=== PATIENT | female | born 1995 | race Caucasian/White ===

== ENCOUNTER 2016-03-16 11:26 | Emergency (ER) | payer MEDICAID ==
--- NOTE | 2016-03-16 11:49 | ER Document Report ---
ED Medical Screen (RME) - General Stated Complaint: VAGINAL DISCHARGE Mode of Arrival: Ambulatory Information source: Patient Notes: Patient presents today with complaints of abdominal cramping vaginal discharge that started today. Patient is 7 weeks she one P0. Denies fever vomiting diarrhea denies trauma. TRAVEL OUTSIDE OF THE [place] IN LAST 30 DAYS: No - Related Data Allergies/Adverse Reactions: No Known Allergies Allergy (Verified 01/29/12 07:51) Past Medical History Past Surgical History: Reports: Hx Orthopedic Surgery - R knee - Immunizations Immunizations up to date: Yes Hx Diphtheria, Pertussis, Tetanus Vaccination: Yes - 03/04/2007 Physical Exam - Vital signs Vitals: Temp Pulse Resp BP Pulse Ox 98.2 F 97 17 124/81 100 03/16/16 11:38 03/16/16 11:38 03/16/16 11:38 03/16/16 11:38 03/16/16 11:38 Course - Vital Signs Vital signs: Temp Pulse Resp BP Pulse Ox 98.2 F 97 17 124/81 100 03/16/16 11:38 03/16/16 11:38 03/16/16 11:38 03/16/16 11:38 03/16/16 11:38
[2016-03-16 12:13] LABS: ABSOLUTE EOSINOPHILS # (AUTO) 0.1 10^3/uL (0.0-0.6); ABSOLUTE LYMPHOCYTES (AUTO) 1.9 10^3/uL (0.5-4.7); ABSOLUTE MONOCYTES (AUTO) 0.7 10^3/uL (0.1-1.4); ABSOLUTE NEUT (AUTO) 8.1 10^3/uL (1.7-8.2); BASOPHILS % (AUTO) 0.4 % (0-2); EOSINOPHILS % (AUTO) 0.6 % (0-6); HEMATOCRIT 41.9 % (36.0-47.0); HEMOGLOBIN 13.6 g/dL (12.0-15.5); HGB HCT DIFFERENCE -1.1; LYMPHOCYTES % (AUTO) 17.5 % (13-45); MEAN CORPUSCULAR HEMOGLOBIN 31.2 pg (27.0-33.4); MEAN CORPUSCULAR HGB CONC 32.5 g/dL (32.0-36.0); MEAN CORPUSCULAR VOLUME 96 fl (80-97); MONOCYTES % (AUTO) 6.9 % (3-13); RED BLOOD COUNT 4.37 10^6/uL (3.72-5.28); RED CELL DISTRIBUTION WIDTH 12.3 % (11.5-14.0); SEGMENTED NEUTROPHILS % (AUTO) 74.6 % (42-78); WHITE BLOOD COUNT 10.8 10^3/uL (4.0-10.5)
[2016-03-16 12:30] LABS: ALANINE AMINOTRANSFERASE 21 U/L (9-52); ALBUMIN 4.5 g/dL (3.5-5.0); ALKALINE PHOSPHATASE 57 U/L (38-126); ANION GAP 14 (5-19); ASPARTATE AMINO TRANSFERASE 20 U/L (14-36); BILIRUBIN,TOTAL 0.4 mg/dL (0.2-1.3); BLOOD UREA NITROGEN 11 mg/dL (7-20); CALCIUM 9.7 mg/dL (8.4-10.2); CARBON DIOXIDE 23 mmol/L (22-30); CHLORIDE 103 mmol/L (98-107); CREATININE RESULT 0.66 mg/dL (0.52-1.25); GLUCOSE 86 mg/dL (75-110); POTASSIUM 4.1 mmol/L (3.6-5.0); SODIUM 139.5 mmol/L (137-145); TOTAL PROTEIN 7.6 g/dL (6.3-8.2)
[2016-03-16] MEDS ORDERED: ACETAMINOPHEN 325 MG TABLET PO ONE (13:32)
--- NOTE | 2016-03-16 13:33 | ER Document Report ---
Addendum entered and electronically signed by KRISTINE WINTER PA 03/16/16 20:47: Course - Re-evaluation Re-evalutation: 03/16/16 20:46 Patient called the emergency department, states she tried to take the pills but cannot take pills without vomiting. Will change to oral suspension. Because the oral suspension of the same dose of cephalexin would be a very large amount , prescription was switched to cefdinir 300 mg twice a day 5 days. This was called into [facility]. - Vital Signs Vital signs: Temp Pulse Resp BP Pulse Ox 98.4 F 85 16 109/74 98 03/16/16 17:06 03/16/16 17:06 03/16/16 17:06 03/16/16 17:06 03/16/16 17:06 - Laboratory Result Diagrams: 03/16/16 11:50 03/16/16 11:50 Laboratory results interpreted by me: 03/16/16 03/16/16 03/16/16 11:50 11:50 11:50 WBC 10.8 H Beta HCG, Quant 41562.00 H Ur Leukocyte Esterase TRACE H Original Note: ED GI/ - General Chief Complaint: Abdominal Cramping Stated Complaint: VAGINAL DISCHARGE Mode of Arrival: Ambulatory Information source: Patient Notes: Patient states she is currently about 7 weeks . Patient reports lower pelvic cramping and vaginal discharge that started today. Patient states discharge has been light brown. Patient reports lower pelvic cramping off and on for the past 2 weeks is currently resolved. Patient denies any urinary symptoms or concerns about sexually transmitted infection. Patient denies any fever, vomiting or diarrhea. TRAVEL OUTSIDE OF THE [place] IN LAST 30 DAYS: No - HPI Patient complains to provider of: Pelvic pain, Onset: Other - 2 weeks off and on Timing/Duration: Waxing and waning Quality of pain: No pain Pain Level: Denies Context: Location: Pelvis Vaginal bleeding (Compared to normal period): None Menstrual period history: Sexual history: Active Associated symptoms: Nausea, Vaginal discharge. denies: Dysuria, Fever, Urinary hesitancy, Urinary frequency, Urinary retention, Urinary urgency Exacerbated by: Denies Relieved by: Denies Similar symptoms previously: Yes Recently seen / treated by doctor: No - Related Data Allergies/Adverse Reactions: No Known Allergies Allergy (Verified 03/16/16 11:49) Past Medical History - General Information source: Patient Last Menstrual Period: 7 weeks - Social History Smoking Status: Never Smoker Chew tobacco use (# tins/day): No Frequency of alcohol use: None Drug Abuse: None Occupation: consulted services Lives with: Family Family History: None Patient has suicidal ideation: No Patient has homicidal ideation: No - Medical History Medical History: Negative Renal/ Medical History: Denies: Hx Peritoneal Dialysis Past Surgical History: Reports: Hx Orthopedic Surgery - R knee - Immunizations Immunizations up to date: Yes Hx Diphtheria, Pertussis, Tetanus Vaccination: Yes - 03/04/2007 Review of Systems - Review of Systems Constitutional: No symptoms reported. denies: Fever, Recent illness EENT: No symptoms reported Cardiovascular: No symptoms reported Respiratory: No symptoms reported. denies: Cough, Short of breath Gastrointestinal: Abdominal pain - Lower pelvic cramping off and on 2 weeks, currently resolved. denies: Vomiting Genitourinary: No symptoms reported. denies: Dysuria, Flank pain Female Genitourinary: , Vaginal discharge, Vaginal bleeding - Possibly, patient reports brown discharge Musculoskeletal: No symptoms reported. denies: Back pain Skin: No symptoms reported Hematologic/Lymphatic: No symptoms reported Neurological/Psychological: No symptoms reported Physical Exam - Vital signs Vitals: Temp Pulse Resp BP Pulse Ox 98.2 F 97 17 124/81 100 03/16/16 11:38 03/16/16 11:38 03/16/16 11:38 03/16/16 11:38 03/16/16 11:38 - General General appearance: Appears well, Alert In distress: None Notes: PHYSICAL EXAMINATION: GENERAL: Well-appearing and in no acute distress. HEAD: Atraumatic, normocephalic. EYES: sclera anicteric, conjunctiva are normal. ENT: nares patent. Moist mucous membranes. NECK: Normal range of motion, supple without lymphadenopathy LUNGS: CTAB and equal. No wheezes rales or rhonchi. HEART: Regular rate and rhythm without murmurs ABDOMEN: Soft, nontender, normal bowel sounds, no guarding. EXTREMITIES: Normal range of motion, no pitting edema. No cyanosis. BACK: No midline tenderness, no step-off or deformity. No CVA tenderness NEUROLOGICAL: Cranial nerves grossly intact. Normal speech. Normal gait. PSYCH: Normal mood, normal affect. SKIN: Warm, Dry, normal turgor, no rashes or lesions noted Course - Re-evaluation Re-evalutation: 03/16/16 16:21 Offered patient pelvic examination, patient declined stating she does not have any concerns about possible infection and declines pelvic examination this time. Patient states she has an appointment with the health department that she will keep for follow-up. Discussed worsening signs or symptoms that patient should return immediately for. Patient verbalized understanding and agrees with plan of care. 03/16/16 18:27 - Vital Signs Vital signs: Temp Pulse Resp BP Pulse Ox 98.4 F 85 16 109/74 98 03/16/16 17:06 03/16/16 17:06 03/16/16 17:06 03/16/16 17:06 03/16/16 17:06 - Laboratory Result Diagrams: 03/16/16 11:50 03/16/16 11:50 Laboratory results interpreted by me: 03/16/16 03/16/16 03/16/16 11:50 11:50 11:50 WBC 10.8 H Beta HCG, Quant 54955.00 H Ur Leukocyte Esterase TRACE H 03/16/16 16:22 Labs- Entire Visit 03/16/16 03/16/16 03/16/16 11:50 11:50 11:50 WBC 10.8 H RBC 4.37 Hgb 13.6 Hct 41.9 MCV 96 MCH 31.2 MCHC 32.5 RDW 12.3 Plt Count 297 Seg Neutrophils % 74.6 Lymphocytes % 17.5 Monocytes % 6.9 Eosinophils % 0.6 Basophils % 0.4 Absolute Neutrophils 8.1 Absolute Lymphocytes 1.9 Absolute Monocytes 0.7 Absolute Eosinophils 0.1 Absolute Basophils 0.0 Sodium 139.5 Potassium 4.1 Chloride 103 Carbon Dioxide 23 Anion Gap 14 BUN 11 Creatinine 0.66 Est GFR ( Amer) > 60 Est GFR (Non-Af Amer) > 60 Glucose 86 Calcium 9.7 Total Bilirubin 0.4 Direct Bilirubin 0.0 AST 20 ALT 21 Alkaline Phosphatase 57 Total Protein 7.6 Albumin 4.5 Beta HCG, Quant 41356.00 H Total Beta HCG POSITIVE Urine Color Urine Appearance Urine pH Ur Specific [place] Urine Protein Urine Glucose (UA) Urine Ketones Urine Blood Urine Nitrite Urine Bilirubin Urine Urobilinogen Ur Leukocyte Esterase Urine WBC (Auto) Urine RBC (Auto) Urine Bacteria (Auto) Squamous Epi Cells Auto Urine Mucus (Auto) Urine Ascorbic Acid Blood Type O POSITIVE Rhogam Indicated RHOGAM NOT INDICATED 03/16/16 11:50 WBC RBC Hgb Hct MCV MCH MCHC RDW Plt Count Seg Neutrophils % Lymphocytes % Monocytes % Eosinophils % Basophils % Absolute Neutrophils Absolute Lymphocytes Absolute Monocytes Absolute Eosinophils Absolute Basophils Sodium Potassium Chloride Carbon Dioxide Anion Gap BUN Creatinine Est GFR ( Amer) Est GFR (Non-Af Amer) Glucose Calcium Total Bilirubin Direct Bilirubin AST ALT Alkaline Phosphatase Total Protein Albumin Beta HCG, Quant Total Beta HCG Urine Color YELLOW Urine Appearance CLEAR Urine pH 6.0 Ur Specific [place] 1.012 Urine Protein NEGATIVE Urine Glucose (UA) NEGATIVE Urine Ketones NEGATIVE Urine Blood NEGATIVE Urine Nitrite NEGATIVE Urine Bilirubin NEGATIVE Urine Urobilinogen NEGATIVE Ur Leukocyte Esterase TRACE H Urine WBC (Auto) 2 Urine RBC (Auto) 1 Urine Bacteria (Auto) TRACE Squamous Epi Cells Auto 1 Urine Mucus (Auto) RARE Urine Ascorbic Acid NEGATIVE Blood Type Rhogam Indicated 03/16/16 18:27 - Diagnostic Test Radiology reviewed: Reports reviewed Discharge - Discharge Clinical Impression: Pelvic cramping Subchorionic bleed Qualifiers: Fetus number: single or unspecified fetus Trimester: first trimester Qualified Code(s): O41.8X10 - Other specified disorders of amniotic fluid and membranes, first trimester, not applicable or unspecified UTI (urinary tract infection) Qualifiers: Urinary tract infection type: site unspecified Hematuria presence: without hematuria Qualified Code(s): N39.0 - Urinary tract infection, site not specified Condition: Stable Disposition: HOME, SELF-CARE Instructions: Cephalexin ([facility]), Urinary Tract Infection ([facility]), Bleeding During Early ([facility]) Additional Instructions: Return immediately for any new or worsening symptoms Followup with your primary care provider, call tomorrow to make a followup appointment Follow up with the health department for a recheck, call Saturday for an appointment time Pelvic rest until cramping symptoms have resolved. Prescriptions: Cephalexin Monohydrate [Keflex 500 mg Capsule] 500 mg PO Q6H 5 Days Forms: Parent Work Note, Return to Work Referrals: HEALTH DEPT,[facility] [NO LOCAL MD] - 03/19/16
[2016-03-16 14:08] LABS: APPEARANCE,URINE CLEAR; BILIRUBIN,URINE NEGATIVE (NEGATIVE); GLUCOSE, URINE NEGATIVE (NEGATIVE); KETONES,URINE NEGATIVE (NEGATIVE); LEUKOCYTE ESTERASE,URINE TRACE (NEGATIVE); NITRITE,URINE NEGATIVE (NEGATIVE); PROTEIN,URINE NEGATIVE (NEGATIVE); URINE SPECIFIC GRAVITY 1.012; UROBILINOGEN,URINE NEGATIVE mg/dL (<2.0)
[2016-03-16] MEDS ORDERED: CEPHALEXIN 500 MG CAPSULE PO ONE (16:22)
[2016-03-16 17:14] VITALS: BP 109/74
== END 2016-03-16 17:16 | disposition home or self-care (01) ==
LOC: ER 11:26
DX: O23.41 Unspecified infection of urinary tract in pregnancy, first trimester (principal); O20.8 Other hemorrhage in early pregnancy; O26.891 Other specified pregnancy related conditions, first trimester; R10.2 Pelvic and perineal pain; Z3A.01 Less than 8 weeks gestation of pregnancy
CPT/HCPCS: 99284; 86900; 86901; 36415; 87086; 84702; 85025; 80053; 81001; 76817; J3490

== ENCOUNTER 2016-06-30 17:53 | Emergency (ER) | payer MEDICAID, OTHER ==
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
[2016-06-30 23:05] VITALS: BP 118/81
== END 2016-06-30 23:00 | disposition home or self-care (01) ==
LOC: ER 17:53
DX: O36.8120 Decreased fetal movements, second trimester, not applicable or unspecified (principal); Z3A.22 22 weeks gestation of pregnancy; V87.7XXA Person injured in collision between other specified motor vehicles (traffic), initial encounter
CPT/HCPCS: 76805; 93976; 99284

== ENCOUNTER 2016-10-18 09:37 | Inpatient (IN) | payer MEDICAID ==
--- NOTE | 2016-10-18 10:50 | Non Stress Test Report ---
Non Stress Test Datetime Report Generated by CPN: 10/18/2016 10:50 DEMOGRAPHIC EGA NST: 38.0 INDICATION Indication for Study (NST) Other: [facility]H w/u MONITORING Monitor Explained: Monitor Explained; Test Explained; Patient Verbalized Understanding Time on Monitor: 10/18/2016 09:53 Time off Monitor: 10/18/2016 10:29 NST Duration: 36 NST INTERVENTIONS NST Interventions: PO Hydration; Reposition Patient Physician Notified NST: Dr. Davidson BABY A: [id number] BABY A Movement : Present Contraction Frequency : Irr FHR Baseline : 130 Accelerations : 15X15 Decelerations : None Variability : Moderate 6-25bpm NST Review: Meets Criteria for Reactive NST NST Review and Verified By : Ivy Banks RNC NST Results: Reactive NST REPORT Report Trigger: Send Report
[2016-10-18 10:52] LABS: APPEARANCE,URINE SLIGHTLY-CLOUDY; BILIRUBIN,URINE NEGATIVE (NEGATIVE); GLUCOSE, URINE NEGATIVE (NEGATIVE); KETONES,URINE NEGATIVE (NEGATIVE); LEUKOCYTE ESTERASE,URINE SMALL (NEGATIVE); NITRITE,URINE NEGATIVE (NEGATIVE); PROTEIN,URINE NEGATIVE (NEGATIVE); URINE SPECIFIC GRAVITY 1.004; UROBILINOGEN,URINE NEGATIVE mg/dL (<2.0)
[2016-10-18 11:11] LABS: URINE BARBITURATES SCREEN NEGATIVE; URINE METHADONE SCREEN NEGATIVE; URINE OPIATES LOW NEGATIVE; URINE PHENCYCLIDINE SCREEN NEGATIVE
[2016-10-18 11:17] LABS: URINE CREATININE 39.1 mg/dL (16-327); URINE PROTEIN 20.1 mg/dL (<12)
[2016-10-18 11:31] LABS: HEMATOCRIT 33.7 % (36.0-47.0); HEMOGLOBIN 11.4 g/dL (12.0-15.5); HGB HCT DIFFERENCE 0.5; MEAN CORPUSCULAR HEMOGLOBIN 31.6 pg (27.0-33.4); MEAN CORPUSCULAR HGB CONC 33.9 g/dL (32.0-36.0); MEAN CORPUSCULAR VOLUME 93 fl (80-97); RED BLOOD COUNT 3.61 10^6/uL (3.72-5.28); RED CELL DISTRIBUTION WIDTH 13.2 % (11.5-14.0); WHITE BLOOD COUNT 11.6 10^3/uL (4.0-10.5)
[2016-10-18 11:43] LABS: ALANINE AMINOTRANSFERASE 19 U/L (9-52); ALBUMIN 3.1 g/dL (3.5-5.0); ALKALINE PHOSPHATASE 215 U/L (38-126); ANION GAP 7 (5-19); ASPARTATE AMINO TRANSFERASE 19 U/L (14-36); BILIRUBIN,DIRECT 0.3 mg/dL (0.0-0.4); BILIRUBIN,TOTAL 0.3 mg/dL (0.2-1.3); BLOOD UREA NITROGEN 3 mg/dL (7-20); CALCIUM 9.2 mg/dL (8.4-10.2); CARBON DIOXIDE 22 mmol/L (22-30); CHLORIDE 109 mmol/L (98-107); CREATININE RESULT 0.55 mg/dL (0.52-1.25); GLUCOSE 75 mg/dL (75-110); LDH 483 U/L (313-618); POTASSIUM 4.2 mmol/L (3.6-5.0); TOTAL PROTEIN 6.1 g/dL (6.3-8.2); URIC ACID 3.9 mg/dL (2.5-6.2)
[2016-10-18 12:13] LABS: BAND NEUTROPHILS % (MANUAL) 1 % (3-5); BASOPHILS % (MANUAL) 0 % (0-2); EOSINOPHILS % (MANUAL) 0 % (0-6); LYMPHOCYTES % (MANUAL) 9 % (13-45); TOTAL CELLS COUNTED 100
[2016-10-18 12:14] LABS: RBC MORPHOLOGY COMMENT NORMO-CYTIC/CHROMIC
[2016-10-18] MEDS ORDERED: MISOPROSTOL 0.1 MG TABLET ONE ×3 (12:45→21:45)
[2016-10-18] MEDS ORDERED: LANSOPRAZOLE 30 MG TAB.RAP.DR ONE (12:55)
[2016-10-18] MEDS ORDERED: HYDRALAZINE HCL INJ/PF 20 MG/1 ML SDV ONE (13:44)
[2016-10-18] MEDS ORDERED: MISOPROSTOL 0.1 MG TABLET PO ONE (21:45)
[2016-10-19] MEDS ORDERED: MISOPROSTOL 0.1 MG TABLET PO ONE (03:04)
[2016-10-19] MEDS ORDERED: MISOPROSTOL 0.1 MG TABLET ONE (03:08)
[2016-10-19] MEDS ORDERED: RINGERS SOLUTION,LACTATED 1,000 ML IV PRN (05:56)
[2016-10-19 06:34] LABS: ABSOLUTE EOSINOPHILS # (AUTO) 0.1 10^3/uL (0.0-0.6); ABSOLUTE LYMPHOCYTES (AUTO) 1.6 10^3/uL (0.5-4.7); ABSOLUTE MONOCYTES (AUTO) 1.3 10^3/uL (0.1-1.4); ABSOLUTE NEUT (AUTO) 10.4 10^3/uL (1.7-8.2); BASOPHILS % (AUTO) 0.3 % (0-2); EOSINOPHILS % (AUTO) 0.5 % (0-6); HEMATOCRIT 33.4 % (36.0-47.0); HEMOGLOBIN 11.3 g/dL (12.0-15.5); HGB HCT DIFFERENCE 0.5; LYMPHOCYTES % (AUTO) 12.3 % (13-45); MEAN CORPUSCULAR HEMOGLOBIN 31.8 pg (27.0-33.4); MEAN CORPUSCULAR HGB CONC 33.7 g/dL (32.0-36.0); MEAN CORPUSCULAR VOLUME 94 fl (80-97); MONOCYTES % (AUTO) 9.4 % (3-13); RED BLOOD COUNT 3.54 10^6/uL (3.72-5.28); RED CELL DISTRIBUTION WIDTH 13.4 % (11.5-14.0); SEGMENTED NEUTROPHILS % (AUTO) 77.5 % (42-78); WHITE BLOOD COUNT 13.4 10^3/uL (4.0-10.5)
[2016-10-19 06:46] LABS: ALANINE AMINOTRANSFERASE 19 U/L (9-52); ALBUMIN 2.8 g/dL (3.5-5.0); ALKALINE PHOSPHATASE 197 U/L (38-126); ANION GAP 7 (5-19); ASPARTATE AMINO TRANSFERASE 16 U/L (14-36); BILIRUBIN,DIRECT 0.3 mg/dL (0.0-0.4); BILIRUBIN,TOTAL 0.4 mg/dL (0.2-1.3); BLOOD UREA NITROGEN < 2 mg/dL (7-20); CALCIUM 9.2 mg/dL (8.4-10.2); CARBON DIOXIDE 22 mmol/L (22-30); CHLORIDE 109 mmol/L (98-107); CREATININE RESULT 0.51 mg/dL (0.52-1.25); GLUCOSE 75 mg/dL (75-110); LDH 416 U/L (313-618); POTASSIUM 3.8 mmol/L (3.6-5.0); SODIUM 137.7 mmol/L (137-145); TOTAL PROTEIN 5.6 g/dL (6.3-8.2); URIC ACID 3.9 mg/dL (2.5-6.2)
[2016-10-19] MEDS ORDERED: OXYTOCIN/NORMAL SALINE 20 UNIT/1,000 ML RTUINJ IV PRN (07:00)
[2016-10-19] MEDS ORDERED: OXYTOCIN/NORMAL SALINE 20 UNIT/1,000 ML RTUINJ ONE (07:26)
--- NOTE | 2016-10-19 13:18 | L&D Progress Notes ---
PROGRESS NOTES Datetime Report Generated by CPN: 10/19/2016 13:17 PROGRESS NOTE Impression: Normal Progression of Labor Procedures: Sterile Vag Exam Plan: Continue Present Management; Induction; Cervical Ripening Informed Consent Obtained: Vaginal Delivery; Risks, Benefits and Alternatives Discussed Vital Signs : Reviewed; Within Normal Limits Comment: Cvx unchanged since this am. Cooks catheter placed. Will get pit rest then give 250ml D5W. THen restart pit via low dose protocol. Anticipate once able to complete cervical ripening. Continue with cervical ripening. CAT I VAGINAL EXAM Dilatation: 2 Dilatation: 0 Effacement: 60 Effacement: 0 Station: -2 Station: -2 MEMBRANES Membranes: Intact Membranes: Intact FETUS A FHR - Baseline: 125 Monitoring: External US Variability: Moderate 6-25bpm Accelerations: 15X15 Decelerations: None FHR Category: Category I : 38.0 Presentation: Vertex SIGNATURE SIGNATURE: [id number] SIGNATURE: [id number] Signature: with User ID: [email or web address]
--- NOTE | 2016-10-19 15:12 | RADIOLOGY REPORT (SQ) ---
EXAM DESCRIPTION: U/S OB LIMITED COMPLETED DATE/TIME: OB ultrasound 10/18/2016, 1037 hours REASON FOR STUDY: Leaking fluid COMPARISON: 03/06/2016 Ob ultrasound TECHNIQUE: Limited transabdominal OB ultrasound was performed to assess the amniotic fluid index. LIMITATIONS: Limited study, complete anatomic survey not ordered and not performed. FINDINGS: Amniotic fluid index is 7.7 cm. Single fetus, cephalic orientation, heart rate 144 beats per minute. Placenta anterior Cervix not evaluated IMPRESSION: Amniotic fluid index 7.7 cm. Other findings as above
--- NOTE | 2016-10-19 19:09 | L&D Progress Notes ---
PROGRESS NOTES Datetime Report Generated by CPN: 10/19/2016 19:08 PROGRESS NOTE Impression: Normal Progression of Labor; Rupture of Membranes Procedures: Artificial ROM; Sterile Vag Exam Plan: Continue Present Management; Induction Informed Consent Obtained: Vaginal Delivery; Induction of Labor Vital Signs : Reviewed Vital Signs Comments: MIld range BPs Comment: Cooks catheter out and in vaginal vault. Cooks catheter removed. Cvx 5/80/-1. Arom and clear fluid. COntinue with IOL. Continue pitocin. Pelvis adequate for DWAYNE. EFW 7#. VAGINAL EXAM Dilatation: 5 Effacement: 80 Station: -1 Contractions: q 2 MEMBRANES Membranes: Ruptured Amniotic Fluid Color: Clear FETUS A FHR - Baseline: 125 Monitoring: External US Variability: Moderate 6-25bpm Accelerations: 15X15 Decelerations: None FHR Category: Category I FETUS C SIGNATURE: [id number];[id number] Signature: with User ID: [email or web address]
[2016-10-19] MEDS ORDERED: FENTANYL/BUPIVACAINE/NS/PF 200 MCG/100 ML RTUINJ EPI ONE (19:57)
[2016-10-19] MEDS ORDERED: BUPIVACAINE HCL 0.25 % INJ/PF (2.5 MG/1 ML) 30 ML VIAL ONE (19:57)
[2016-10-19] MEDS ORDERED: EPHEDRINE SULFATE INJ 50 MG/1 ML AMPULE ONE (19:57)
[2016-10-19] MEDS ORDERED: HYDRALAZINE HCL INJ/PF 20 MG/1 ML SDV ONE (20:22)
--- NOTE | 2016-10-19 23:09 | L&D Progress Notes ---
PROGRESS NOTES Datetime Report Generated by CPN: 10/19/2016 23:08 PROGRESS NOTE Impression: Normal Progression of Labor Procedures: Sterile Vag Exam Plan: Continue Present Management; Induction Informed Consent Obtained: Vaginal Delivery; Induction of Labor; Risks, Benefits and Alternatives Discussed Vital Signs : Reviewed Comment: Pt called out stating she had pressure. Cvx 9/90/0. Pt sitting in high fowlers. Reviewed with pt labor progress. Continue with pitocin and IOL. CAT I NST. Anticipate . VAGINAL EXAM Dilatation: 9 Effacement: 90 Station: 0 MEMBRANES Amniotic Fluid Color: Clear FETUS A FHR - Baseline: 130 Monitoring: External US Variability: Moderate 6-25bpm Accelerations: 15X15 Decelerations: None FHR Category: Category I FETUS C SIGNATURE: [id number];[id number] Signature: with User ID: [email or web address]
[2016-10-20] MEDS ORDERED: LIDOCAINE 2% INJ-PF (20 MG/ML) 10 ML AMPUL ONE (00:19)
--- NOTE | 2016-10-20 00:19 | L&D Progress Notes ---
PROGRESS NOTES Datetime Report Generated by CPN: 10/20/2016 00:19 PROGRESS NOTE Impression: Normal Progression of Labor Procedures: Sterile Vag Exam Plan: Continue Present Management; Induction; Anticipate Vaginal Delivery Informed Consent Obtained: Vaginal Delivery; Risks, Benefits and Alternatives Discussed Vital Signs : Reviewed; Within Normal Limits Comment: Pt reports feeling more pressure. Cvx AL/90/0. Encouraged patient to continue position changes and to be patient with need for continued cervical change. REviewed progress with pt. Anticipate . Pelvis adequate for continued DWAYNE. VAGINAL EXAM Dilatation: 10 Effacement: 90 Station: 0 Contractions: q2 MEMBRANES Membranes: Ruptured Amniotic Fluid Color: Clear FETUS A FHR - Baseline: 120 Monitoring: External US Variability: Moderate 6-25bpm Accelerations: 15X15 Decelerations: None FHR Category: Category I FETUS C SIGNATURE: [id number];[id number] Signature: with User ID: [email or web address]
[2016-10-20] MEDS ORDERED: MISOPROSTOL 0.2 MG TABLET ONE (02:53)
[2016-10-20] MEDS ORDERED: OXYTOCIN/NORMAL SALINE 0 UNIT/0 ML RTUINJ ONE (02:53)
[2016-10-20] MEDS ORDERED: LIDOCAINE 1% INJ-PF (10 MG/ML) 30 ML SDV ONE (02:53)
[2016-10-20] MEDS ORDERED: OXYTOCIN 10 UNIT/ML VIAL ONE (05:13)
[2016-10-20] MEDS ORDERED: OXYTOCIN/NORMAL SALINE 20 UNIT/1,000 ML RTUINJ IV PRN (06:22)
[2016-10-20] MEDS ORDERED: DIPH/PERTUSS(ACELL)/TETANUS VAC/PF 0.5 ML SYR (>=10YO) IM PRN (06:22)
[2016-10-20] MEDS ORDERED: BENZOCAINE/MENTHOL AEROSOL SPRAY 56 ML TOP PRN (06:22)
[2016-10-20] MEDS ORDERED: DIBUCAINE 1% OINTMENT 28 GM TP PRN (06:22)
[2016-10-20] MEDS ORDERED: MEASLES,MUMPS&RUBELLA VACC/PF 0.5 ML VIAL SUBCUT PRN (06:22)
[2016-10-20] MEDS ORDERED: ACETAMINOPHEN WITH CODEINE #3 TABLET PO PRN ×2 (06:22)
[2016-10-20] MEDS ORDERED: ZOLPIDEM TARTRATE 5 MG TABLET PO PRN (06:22)
--- NOTE | 2016-10-20 07:55 | Admission Physical ---
Datetime Report Generated by CPN: 10/20/2016 07:54 CURRENT ADMISSION Chief Complaint: Sent from OB Office for Evaluation and Treatment - Please Specify Chief Complaint Other: Increased BP Indication for Induction: Gestational HTN Admit Plan: Admit to Unit; Initiate Labor Induction Protocol ALLERGIES Medication Allergies: No Medication Allergies: No Known Allergies (10/18/2016) Medication Allergies: No Known Allergies (06/30/2016) Latex: No Latex Allergies OBSTETRICAL HISTORY EDC: 11/01/2016 00:00 : 1 Para: 0 Term: 0 : 0 SAB: 0 IAB: 0 Ectopic: 0 Livin Cesareans: 0 VBACs: 0 Multiple Births: 0 Gestational Diabetes: No Rh Sensitization: No Incompetent Cervix: No ZAHEER: No Infertility: No ART Treatment: No Uterine Anomaly: No IUGR: No Hx Previous C/S: No Macrosomia: No Hx Loss/Stillborn: No PIH: No Hx : No Placenta Previa/Abruption: No Depression/PP Depression: No PTL/PROM: No Post Hemorrhage: No Current Procedures: Ultrasound Obstetrical History Comments: G1: current SEE RECORDS Alcohol: No Marijuana : No Cocaine: No Other Illicit Drugs: No Cigarettes: Never Smoker. [id number] MEDICAL HISTORY Diabetes: No Blood Transfusion: No Pulmonary Disease (Asthma, TB): No Breast Disease: No Hypertension: No Medication Assistant Surgery: No Heart Disease: No Hosp/Surgery: Yes Autoimmune Disorder: No Anesthetic Complications: No Kidney Disease: No Abnormal Pap Smear: No Neuro/Epilepsy: No Psychiatric Disorders: No Other Medical Diseases: No Hepatitis/Liver Disease: No Significant Family History: No Varicosities/Phlebitis: No Trauma/Violence : No Thyroid Dysfunction: No Medical History Comments: heart murmur when pt was , knee surgery 2009, hernia 1994 INFECTIOUS HISTORY Gonorrhea: No Genital Herpes: No Chlamydia: No Tuberculosis: No Syphilis: No Hepatitis: No HIV/AIDS Exposure: No Rash or Viral Illness: No HPV: No PHYSICAL EXAM General: Normal HEENT: Normal Neurologic: Normal Thyroid: Deferred Heart: Normal Lungs: Normal Breast: Deferred Back: Normal Abdomen: Normal Genitourinary Exam: Normal Extremities: Normal DTRs: Normal Pelvic Type: Adequate Vital Signs: Reviewed; Within Normal Limits VAGINAL EXAM Dilatation: 10 Dilatation: 9 Dilatation: 5 Dilatation: 2 Dilatation: 0 Effacement: 90 Effacement: 90 Effacement: 80 Effacement: 60 Effacement: 0 Station: 0 Station: 0 Station: -1 Station: -2 Station: -2 Contraction Comments: q2 Contraction Comments: q 2 MEMBRANES Membranes: Ruptured Membranes: Ruptured Membranes: Intact Membranes: Intact Amniotic Fluid Color: Clear Amniotic Fluid Color: Clear Amniotic Fluid Color: Clear FETUS A EGA: 38.1 Monitoring: External US FHR- Baseline: 140 Variability: Moderate 6-25bpm Accelerations: 15X15 Decelerations: None FHR Category: Category I Presentation: Vertex PLANS FOR LABOR AND DELIVERY Labor and Delivery: None Pain Management: Epidural Feeding Preference: Breast Benefit of Breast Feed Discussed: Yes Circumcision: Yes INFORMED CONSENT Informed Consent Obtained: Vaginal Delivery; Risks, Benefits and Alternatives Discussed Informed Consent Obtained: Vaginal Delivery; Induction of Labor; Risks, Benefits and Alternatives Discussed Informed Consent Obtained: Vaginal Delivery; Induction of Labor Informed Consent Obtained: Vaginal Delivery; Risks, Benefits and Alternatives Discussed Signature: with User ID: [email or web address]
--- NOTE | 2016-10-20 08:16 | Delivery Summary ---
Del Sum A-C Datetime Report Generated by CPN: 10/20/2016 08:15 DELIVERY PERSONNEL DELIVERY PERSONNEL: [id number] Delivery Doctor:: Nikkie Horta CNM Labor and Delivery Nurse:: Yesi Baker RNwebsphere administrator Nurse:: Viridiana Hayes RN Lending Advisor:: Anna Zuniga RN Nursery Nurse:: Yesi Luis RN Nursery Nurse:: AICHA Valdesub Tech/AGRICULTURE TEACHER: TRAMAINE Cottrellub Tech/TRAMAINE: Sudha Tran, ST MATERNAL INFORMATION Delivery Anesthesia: Epidural Medications After Delivery: Pitocin 10 Units IM; Pitocin Bolus-Please Comment; Pitocin Drip 20 Units/1000ml NSS Estimated Blood Loss (ml): 485 Maternal Complications: Other Other Maternal Complications: GHTN Provider Comments: pt progressed with good pushing effort, large amount of caput noted, head delivered, very tight nuchal noted, pt attemted to push, no descent, attempted to reduce cord, cord avulsed, pt coached to push, head of bed lowered, Miriam manuver, suprapubic pressure applied over left shoulder, no descent, woodscrew manuver anterior shoulder rotated to posterior and delivered. Total time from head delivery to delivery of body was 1 min 20 seconds. handed off to nursery staff, see nursery notes, spontaneous delivery of placenta via mcghee, heavy bleeding at first. IV came out, IM pitocin given. Repair as above, good hemostasis acheived. Infant to NICU, mother in stable condition. LABOR SUMMARY EDC: 11/01/2016 00:00 No. Babies in Womb: 1 Labor Anesthesia: Epidural LABOR INFORMATION Reason for Induction: Gestational Hypertension Onset of Labor: 10/19/2016 18:20 Complete Dilatation: 10/20/2016 02:00 Cervical Ripening Agents: Sepulveda Balloon Oxytocin: Induction Group B Beta Strep: Negative Steroids Given: None Reason Steroids Not Administered: Not Applicable MEMBRANES Membranes Rupture Method: Artificial Rupture of Membranes: 10/19/2016 18:20 Length of Rupture (hr): 10.75 Amniotic Fluid Color: Clear Amniotic Fluid Amount: Small STAGES OF LABOR Stage 1 hr: 7 Stage 1 min: 40 Stage 2 hr: 3 Stage 2 min: 5 Stage 3 hr: 0 Stage 3 min: 2 Total Time in Labor hr: 10 Total Time in Labor min: 47 VAGINAL DELIVERY Episiotomy: None Laceration Extension: Second Degree Laceration Type: Vaginal Laceration Repair: Yes Laceration Repair Note: With 2-0 chromic in usual fashion. with epidural anesthesi Sponge Count Correct: Yes Sharps Count Correct: Yes CSECTION DELIVERY Primary Indication: N/A CSection Incision: N/A BABY A INFORMATION Infant Delivery Date/Time: 10/20/2016 05:05 Method of Delivery: Vaginal Born in Route : No : N/A Forceps: N/A Vacuum Extraction: N/A Shoulder Dystocia : Yes SHOULDER DYSTOCIA BABY A 1st Intervention to Resolve: Gentle Attempt at Traction, Assisted by Maternal Expulsive Efforts 2nd Intervention to Resolve: McRobert's Maneuver 3rd Intervention to Resolve: Suprapubic Pressure 4th Intervention to Resolve: Leahy Maneuver Verify NO Fundal Pressure: No Fundal Pressure Applied Arm Under Symphisis at Del: Left Shoulder Dystocia Comments: shoulder dystocia for 1 minute and 20 seconds PRESENTATION/POSITION BABY A Presentation: Cephalic Cephalic Presentation: Vertex Vertex Position: Left Occipital Anterior Breech Presentation: N/A PLACENTA INFORMATION BABY A Placenta Delivery Time : 10/20/2016 05:07 Placenta Method of Delivery: Spontaneous Placenta Status: Delivered SCORES BABY A Heart Rate 1 min: >100 bpm Resp Effort 1 min: Slow, Irregular Reflex Irritability 1 min: No Response Muscle Tone 1 min: Some Flexion of Extremities Color 1 min: Blue/Pale Resuscitation Effort 1 min: Tactile Stimulation; Oxygen; PPV/NCPAP SCORE 1 MIN: 4 Heart Rate 5 min: >100 bpm Resp Effort 5 min: Good Cry Reflex Irritability 5 min: Grimace Muscle Tone 5 min: Some Flexion of Extremities Color 5 min: Body Privateer, Extremities Blue SCORE 5 MIN: 7 INFANT INFORMATION BABY A Gestational Age at Delivery: 38.2 Gestational Status: Early Term- 37- 38.6 Weeks Infant Outcome : Liveborn Condition : Stable Sex: Male WEIGHT/LENGTH BABY A Infant Birthweight (gm): 4120 Infant Weight (lb): 9 Weight (oz): 1 CORD INFORMATION BABY A No. Cord Vessels: 3 Nuchal Cord : Around Neck x1, Tight Cord Blood Taken: Yes-For Eval (Mom's Blood Type - or O+) SIGNATURES Assignment: Elsa Sorto MD Signature: with User ID: Mamie : with User ID: Mamie
[2016-10-20] MEDS: PRENATAL VITAMIN W-O CA NO5/FE FUMARATE/FA CAPSULE PO SCH (10:33)
[2016-10-20] MEDS: DOCUSATE SODIUM 100 MG CAPSULE PO SCH ×2 (10:33→17:30)
[2016-10-20] MEDS: FERROUS SULFATE 325 MG TABLET PO SCH ×2 (10:33→17:30)
[2016-10-20] MEDS: SENNOSIDES/DOCUSATE 8.6-50 MG 1 EACH TABLET PO SCH (10:33)
[2016-10-20] MEDS: IBUPROFEN 800 MG TABLET PO SCH ×2 (14:10→23:23)
[2016-10-21] MEDS: IBUPROFEN 800 MG TABLET PO SCH (06:35)
[2016-10-21 08:14] LABS: HEMATOCRIT 25.5 % (36.0-47.0); HGB HCT DIFFERENCE -0.3; MEAN CORPUSCULAR HEMOGLOBIN 31.5 pg (27.0-33.4); MEAN CORPUSCULAR VOLUME 96 fl (80-97); RED BLOOD COUNT 2.67 10^6/uL (3.72-5.28); RED CELL DISTRIBUTION WIDTH 13.8 % (11.5-14.0); WHITE BLOOD COUNT 19.9 10^3/uL (4.0-10.5)
[2016-10-21 08:24] LABS: HEMOGLOBIN 8.4 g/dL (12.0-15.5)
[2016-10-21] MEDS: SENNOSIDES/DOCUSATE 8.6-50 MG 1 EACH TABLET PO SCH (10:10)
[2016-10-21] MEDS: DOCUSATE SODIUM 100 MG CAPSULE PO SCH ×2 (10:11→17:54)
[2016-10-21] MEDS: PRENATAL VITAMIN W-O CA NO5/FE FUMARATE/FA CAPSULE PO SCH (10:13)
[2016-10-21] MEDS: FERROUS SULFATE 325 MG TABLET PO SCH ×2 (10:13→17:54)
[2016-10-21] MEDS: IBUPROFEN SUSP 20 MG/1 ML 118 ML PO SCH (14:11)
--- NOTE | 2016-10-21 14:16 | PDOC PROGRESS REPORT ---
Subjective-OB Subjective: Post Delivery Day:1 21 year old. Denies any needs at this time, states lochia is stable, voiding without difficulty, pain well controlled. Physical Exam (OB) Vital Signs: Temp Pulse Resp BP Pulse Ox 98.1 F 89 18 130/83 H 100 10/21/16 07:54 10/21/16 07:54 10/21/16 07:54 10/21/16 07:54 10/21/16 07:54 Intake & Output 10/20/16 10/21/16 10/22/16 06:59 06:59 06:59 Intake Total 200 340 Balance 200 340 - PIH/Pre-Eclampsia DTR's: 2 + Clonus: Negative Headache: Absent Epigastric Pain: No Visual Changes: No - Lochia Lochia Amount: Small 10-25 ml Lochia Color: Rubra/Red - Abdomen Description: Soft Hernia Present: No Fundal Description: Firm, Midline Fundal Height: u/u - u/2 Objective-Diagnostic Laboratory: 10/21/16 07:27 10/19/16 06:27 10/21/16 07:27 WBC 19.9 H RBC 2.67 L Hgb 8.4 L D Hct 25.5 L MCV 96 MCH 31.5 MCHC 33.0 RDW 13.8 Plt Count 233 Assessment and Plan(PN) - Assessment and Plan (1) Spontaneous vaginal delivery Is this a current diagnosis for this admission?: Yes Plan: routine pp care (2) Acute blood loss anemia Is this a current diagnosis for this admission?: Yes Plan: ferrous sulfate increase dietary iron (3) Shoulder dystocia, antepartum Is this a current diagnosis for this admission?: Yes Plan: discussed with pt (4) Gestational hypertension Qualifiers: Trimester: third trimester Qualified Code(s): O13.3 - Gestational [ -induced] hypertension without significant proteinuria, third trimester Is this a current diagnosis for this admission?: Yes Plan: pp follow up - Time Spent with Patient Time with patient: Less than 15 minutes Critical Time spent with patient: Less than 15 minutes Medications reviewed and adjusted accordingly: Yes - Disposition Anticipated Discharge: Home Within: within 24 hours
[2016-10-22] MEDS: IBUPROFEN SUSP 20 MG/1 ML 118 ML PO SCH ×3 (02:35→13:25)
[2016-10-22] MEDS: SENNOSIDES/DOCUSATE 8.6-50 MG 1 EACH TABLET PO SCH (09:28)
[2016-10-22] MEDS: DOCUSATE SODIUM 100 MG CAPSULE PO SCH (09:28)
[2016-10-22] MEDS: FERROUS SULFATE 325 MG TABLET PO SCH (09:28)
[2016-10-22] MEDS: PRENATAL VITAMIN W-O CA NO5/FE FUMARATE/FA CAPSULE PO SCH (09:28)
[2016-10-22 09:46] VITALS: BP 132/90
--- NOTE | 2016-10-22 10:13 | PDOC DISCHARGE SUMMARY ---
Final Diagnosis Discharge Date: 10/22/16 - Final Diagnosis (1) Gestational hypertension Is this a current diagnosis for this admission?: Yes (2) Shoulder dystocia, antepartum Is this a current diagnosis for this admission?: Yes (3) Spontaneous vaginal delivery Is this a current diagnosis for this admission?: Yes Discharge Data - Discharge Medication Home Medications: Vit #105/Iron/FA/Dha [Prena1 True Combo Pack] 1 pkg PO DAILY 10/18/16 Reason(s) for Admission: Induction of Labor, Obstetric Complications, PIH Procedures: NST Intrapartum Procedure(s): Spontaneous Vaginal Delivery, Other Intrapartum Procedure Note: shoulder dystocia Complication(s): Laceration-Vaginal Laceration-Degree: 2nd - Diagnosis Test Laboratory: Temp Pulse Resp BP Pulse Ox 98.2 F 96 16 132/90 H 100 10/22/16 09:45 10/22/16 09:45 10/22/16 09:45 10/22/16 09:45 10/22/16 09:45 10/18/16 10/18/16 10/19/16 09:45 11:00 06:27 RBC 3.61 L 3.54 L Hgb 11.4 L 11.3 L Hct 33.7 L 33.4 L Urine Opiates Screen NEGATIVE 10/21/16 07:27 RBC 2.67 L Hgb 8.4 L D Hct 25.5 L Urine Opiates Screen - Discharge information/Instructions Discharge Activity: Activity As Tolerated, Balance Activity w/Rest, No Lifting Over 10 Pounds, No Lifting/Push/Pulling, Pelvic Rest, No tub bath Discharge Diet: Regular Disposition: HOME, SELF-CARE Follow up with: [facility] in: 4, Weeks
== END 2016-10-22 15:10 | disposition home or self-care (01) | DRG 775 ==
LOC: LC 09:37 → LR 11:59 → 2S 10-20 07:52
PROVIDERS: ADMIT Obstetrics & Gynecology; ATTEND Obstetrics & Gynecology
PROC: 4A1HXCZ Monitoring of Products of Conception, Cardiac Rate, External Approach (ICD-10-PCS; 2016-10-18)
PROC: 3E033VJ Introduction of Other Hormone into Peripheral Vein, Percutaneous Approach (ICD-10-PCS; 2016-10-19)
PROC: 10907ZC Drainage of Amniotic Fluid, Therapeutic from Products of Conception, Via Natural or Artificial Opening (ICD-10-PCS; 2016-10-19)
PROC: 0U7C7ZZ Dilation of Cervix, Via Natural or Artificial Opening (ICD-10-PCS; 2016-10-19)
PROC: 10E0XZZ Delivery of Products of Conception, External Approach (ICD-10-PCS; principal; 2016-10-20)
PROC: 0KQM0ZZ Repair Perineum Muscle, Open Approach (ICD-10-PCS; 2016-10-20)
PROC: 10S0XZZ Reposition Products of Conception, External Approach (ICD-10-PCS; 2016-10-20)
DX: O13.4 Gestational [pregnancy-induced] hypertension without significant proteinuria, complicating childbirth (principal); O70.1 Second degree perineal laceration during delivery; O66.0 Obstructed labor due to shoulder dystocia; O69.1XX0 Labor and delivery complicated by cord around neck, with compression, not applicable or unspecified; Z3A.38 38 weeks gestation of pregnancy; Z37.0 Single live birth
CPT/HCPCS: 36415; 76815; 80053; 80307; 81001; 82570; 83615; 84156; 84550; 85025; 85027; 86592; 86850; 86900; 86901; 88307; 94760; C1726; J0360; J2590; J3490

== ENCOUNTER 2017-06-04 18:47 | Emergency (ER) | payer MEDICAID ==
--- NOTE | 2017-06-04 19:23 | ER Document Report ---
ED Medical Screen (RME) - General Chief Complaint: Vaginal Bleeding Stated Complaint: VAGINAL BLEEDING Time Seen by Provider: 06/04/17 19:17 Notes: 21-year-old female patient states she 6 weeks . About 1 hour prior to arrival she stood up following sitting briefly and had a gush of blood without clots. There was some cramping and discomfort earlier. I have greeted and performed a rapid initial assessment of this patient. A comprehensive ED assessment and evaluation of the patient, analysis of test results and completion of the medical decision making process will be conducted by additional ED providers. TRAVEL OUTSIDE OF THE [place] IN LAST 30 DAYS: No - Related Data Allergies/Adverse Reactions: No Known Allergies Allergy (Verified 06/04/17 18:48) Past Medical History Renal/ Medical History: Denies: Hx Peritoneal Dialysis Past Surgical History: Reports: Hx Orthopedic Surgery - R knee - Immunizations Immunizations up to date: Yes Hx Diphtheria, Pertussis, Tetanus Vaccination: Yes - 03/04/2007 Physical Exam - Vital signs Vitals: Temp Pulse Resp BP Pulse Ox 98.8 F 97 16 121/72 99 06/04/17 18:54 06/04/17 18:54 06/04/17 18:54 06/04/17 18:54 06/04/17 18:54 Course - Vital Signs Vital signs: Temp Pulse Resp BP Pulse Ox 98.8 F 97 16 121/72 99 06/04/17 18:54 06/04/17 18:54 06/04/17 18:54 06/04/17 18:54 06/04/17 18:54
[2017-06-04 20:00] LABS: ABSOLUTE EOSINOPHILS # (AUTO) 0.2 10^3/uL (0.0-0.6); ABSOLUTE LYMPHOCYTES (AUTO) 2.3 10^3/uL (0.5-4.7); ABSOLUTE MONOCYTES (AUTO) 0.9 10^3/uL (0.1-1.4); BASOPHILS % (AUTO) 0.3 % (0-2); EOSINOPHILS % (AUTO) 1.2 % (0-6); HEMATOCRIT 39.7 % (36.0-47.0); HEMOGLOBIN 13.5 g/dL (12.0-15.5); LYMPHOCYTES % (AUTO) 16.1 % (13-45); MEAN CORPUSCULAR HEMOGLOBIN 31.6 pg (27.0-33.4); MEAN CORPUSCULAR VOLUME 93 fl (80-97); MONOCYTES % (AUTO) 6.1 % (3-13); PLATELET COUNT 312 10^3/uL (150-450); RED BLOOD COUNT 4.28 10^6/uL (3.72-5.28); RED CELL DISTRIBUTION WIDTH 13.3 % (11.5-14.0); SEGMENTED NEUTROPHILS % (AUTO) 76.3 % (42-78); TOTAL CELLS COUNTED % (AUTO) 100 %; WHITE BLOOD COUNT 14.4 10^3/uL (4.0-10.5)
--- NOTE | 2017-06-04 20:08 | ER Document Report ---
ED GI/ - General Chief Complaint: Vaginal Bleeding Stated Complaint: VAGINAL BLEEDING Time Seen by Provider: 06/04/17 19:17 Notes: Patient is a 21 year old female, at 7 weeks gestation by last menstrual period, that comes to the Emergency Department for chief complaint of vaginal bleeding. She states that she stood up this afternoon and had a gush of blood without any clots, she states bleeding has slowed down to a trickle now, she had some cramping initially but has no pain now. She denies flank pain, vomiting, fever, dizziness, vaginal discharge, trauma, or any other complaints. Only history is orthopedic surgeries, she takes vitamins but no daily medications. TRAVEL OUTSIDE OF THE [place] IN LAST 30 DAYS: No - Related Data Allergies/Adverse Reactions: No Known Allergies Allergy (Verified 06/04/17 18:48) Past Medical History - General Information source: Patient - Social History Smoking Status: Never Smoker Chew tobacco use (# tins/day): No Frequency of alcohol use: None Drug Abuse: None Lives with: Family Family History: Reviewed & Not Pertinent Patient has suicidal ideation: No Patient has homicidal ideation: No - Medical History Medical History: Negative Renal/ Medical History: Denies: Hx Peritoneal Dialysis Past Surgical History: Reports: Hx Orthopedic Surgery - R knee - Immunizations Immunizations up to date: Yes Hx Diphtheria, Pertussis, Tetanus Vaccination: Yes - 03/04/2007 Review of Systems - Review of Systems Constitutional: No symptoms reported EENT: No symptoms reported Cardiovascular: No symptoms reported Respiratory: No symptoms reported Gastrointestinal: See HPI Genitourinary: See HPI Female Genitourinary: See HPI Musculoskeletal: No symptoms reported Skin: No symptoms reported Hematologic/Lymphatic: No symptoms reported Neurological/Psychological: No symptoms reported Physical Exam - Vital signs Vitals: Temp Pulse Resp BP Pulse Ox 98.8 F 97 16 121/72 99 06/04/17 18:54 06/04/17 18:54 06/04/17 18:54 06/04/17 18:54 06/04/17 18:54 Interpretation: Normal - General General appearance: Appears well In distress: None - HEENT Head: Normocephalic, Atraumatic Eyes: Normal Eyelashes: Normal Pupils: PERRL Sinus: Normal Nasal: Normal Mouth/Lips: Normal Mucous membranes: Normal - Respiratory Respiratory status: No respiratory distress Chest status: Nontender Breath sounds: Normal Chest palpation: Normal - Cardiovascular Rhythm: Regular Heart sounds: Normal auscultation Murmur: No - Abdominal Inspection: Normal Distension: No distension Bowel sounds: Normal Tenderness: Nontender Organomegaly: No organomegaly - Back Back: Normal, Nontender - Extremities General upper extremity: Normal inspection, Nontender, Normal color, Normal ROM , Normal temperature General lower extremity: Normal inspection, Nontender, Normal color, Normal ROM , Normal temperature, Normal weight bearing. No: Rodri's sign - Neurological Neuro grossly intact: Yes Cognition: Normal Orientation: AAOx4 Arlen Coma Scale Eye Opening: Spontaneous Arlen Coma Scale Verbal: Oriented Paxton Coma Scale Motor: Obeys Commands Arlen Coma Scale Total: 15 Speech: Normal Motor strength normal: LUE, RUE, LLE, RLE Sensory: Normal - Psychological Associated symptoms: Normal affect, Normal mood - Skin Skin Temperature: Warm Skin Moisture: Dry Skin Color: Normal Course - Re-evaluation Re-evalutation: Soft nontender abdomen. Patient is well-appearing. Vital signs unremarkable. CBC shows mild leukocytosis, nonspecific given patient's normal vital signs, lack of symptoms at this time, and soft nontender abdomen. HCG is elevated. RhoGam is not indicated. Ultrasound showing gestational sac without definitely visualized IUP. I discussed this in detail with patient. Discussed possibilities, she has already established good follow-up with [facility], she states she can follow-up closely for repeat hCG and possibly an ultrasound. She states she understands return precautions in detail. - Vital Signs Vital signs: Temp Pulse Resp BP Pulse Ox 98.8 F 80 20 127/66 H 98 06/04/17 18:54 06/04/17 23:14 06/04/17 23:14 06/04/17 23:14 06/04/17 23:14 - Laboratory Result Diagrams: 06/04/17 19:35 Laboratory results interpreted by me: 06/04/17 06/04/17 19:35 19:35 WBC 14.4 H Absolute Neutrophils 11.0 H Beta HCG, Quant 8666.90 H Discharge - Discharge Clinical Impression: Vaginal bleeding during Condition: Stable Disposition: HOME, SELF-CARE Additional Instructions: Your ultrasound does not definitely show a in the uterus. As result it is not certain whether this is early in the , if you have an ectopic elsewhere, or you are miscarrying. Please follow-up within the next 2-3 days(with [facility]) for a recheck of your beta hCG () hormone to help determine how this is progressing. Return immediately for any concerning symptoms including severe pain, passing out, or any other concerning symptoms. Forms: Return to Work Referrals: [facility] [Provider Group] - 06/07/17
--- NOTE | 2017-06-04 22:40 | RADIOLOGY REPORT (SQ) ---
EXAM DESCRIPTION: U/S OB TRANSVAGINAL W/O DOP COMPLETED DATE/TIME: 06/04/2017 9:34 pm REASON FOR STUDY: 7WKS, BLEEDING COMPARISON: None. TECHNIQUE: Transvaginal static and realtime grayscale images acquired of the pelvis. Additional adiel cted spectral and color Doppler images recorded. All images stored on PACs. [id number] LIMITATIONS: None. FINDINGS: UTERUS: No masses. No anomalies. GESTATIONAL SAC: Yes YOLK SAC: No POLE: Neck RIGHT ADNEXA: Choose No adnexal free fluid. No adnexal masses. LEFT ADNEXA: Ovary not identified. No adnexal free fluid. No adnexal masses. FREE FLUID: None. OTHER: No other significant finding. IMPRESSION: POSSIBLE EARLY INTRAUTERINE . BHCG LEVEL APPROPRIATE FOR ENDOMETRIAL FINDINGS. CONSIDER F/U BHCG AND/OR ULTRASOUND FOR VERIFICATION AND TO EXCLUDE ECTOPIC . Trimester of : First - 0 to 13 weeks. TECHNICAL DOCUMENTATION: JOB ID: [id number] 23press- All Rights Reserved Reading location - IP/workstation name: [email or web address]
[2017-06-04 23:15] VITALS: BP 127/66
== END 2017-06-04 23:14 | disposition home or self-care (01) ==
LOC: ER 18:47
DX: O46.91 Antepartum hemorrhage, unspecified, first trimester (principal); O26.891 Other specified pregnancy related conditions, first trimester; R10.9 Unspecified abdominal pain; D72.829 Elevated white blood cell count, unspecified; Z3A.01 Less than 8 weeks gestation of pregnancy
CPT/HCPCS: 36415; 76817; 84702; 85025; 86900; 86901; 99284

== ENCOUNTER 2018-01-06 06:03 | Inpatient (IN) | payer MEDICAID ==
[2018-01-06 06:57] LABS: APPEARANCE,URINE SLIGHTLY-CLOUDY; BILIRUBIN,URINE NEGATIVE (NEGATIVE); COLOR,URINE YELLOW; GLUCOSE, URINE NEGATIVE (NEGATIVE); KETONES,URINE NEGATIVE (NEGATIVE); LEUKOCYTE ESTERASE,URINE SMALL (NEGATIVE); NITRITE,URINE POSITIVE (NEGATIVE); PROTEIN,URINE 100 mg/dL (NEGATIVE); URINE SPECIFIC GRAVITY 1.012; UROBILINOGEN,URINE NEGATIVE mg/dL (<2.0)
[2018-01-06 07:20] LABS: URINE AMPHETAMINES SCREEN NEGATIVE; URINE BARBITURATES SCREEN NEGATIVE; URINE BENZODIAZEPINES SCREEN NEGATIVE; URINE COCAINE SCREEN NEGATIVE; URINE MARIJUANA (THC) SCREEN NEGATIVE; URINE METHADONE SCREEN NEGATIVE; URINE PHENCYCLIDINE SCREEN NEGATIVE
[2018-01-06] MEDS ORDERED: CITRIC ACID/SODIUM CITRATE ORAL SOLN 15 ML UDCUP ONE (07:55)
[2018-01-06] MEDS ORDERED: CEFAZOLIN 2 GM/D5W RTU 2 GM/50 ML RTUPB IV ONE (07:56)
[2018-01-06] MEDS ORDERED: RINGERS SOLUTION,LACTATED 1,000 ML IV ONE (08:01)
[2018-01-06] MEDS ORDERED: RINGERS SOLUTION,LACTATED 1,000 ML IV PRN (08:01)
[2018-01-06] MEDS ORDERED: PENICILLIN G POTASSIUM 5,000,000 UNIT in DEXTROSE 5%-WATER 100 ML IV ONE ×2 (08:01→08:15)
[2018-01-06] MEDS ORDERED: OXYTOCIN 10 UNIT/ML VIAL ONE (08:02)
[2018-01-06] MEDS ORDERED: PROPOFOL INJ 200 MG/20 ML VIAL IV ONE (08:02)
[2018-01-06] MEDS ORDERED: MIDAZOLAM 2 MG/2 ML INJ ONE (08:03)
[2018-01-06] MEDS ORDERED: EPHEDRINE SULFATE INJ 50 MG/1 ML AMPULE ONE (08:03)
[2018-01-06] MEDS ORDERED: FENTANYL CITRATE INJ/PF 100 MCG/2 ML AMPUL ONE (08:03)
[2018-01-06] MEDS ORDERED: BUPIVACAINE HCL/DEX-WATER/PF 15 MG/2 ML AMPULE ONE (08:03)
[2018-01-06] MEDS ORDERED: PENICILLIN G-K 5 MILLION UNIT VIAL ONE (08:08)
[2018-01-06 08:32] LABS: ABSOLUTE LYMPHOCYTES (AUTO) 1.5 10^3/uL (0.5-4.7); ABSOLUTE MONOCYTES (AUTO) 0.9 10^3/uL (0.1-1.4); ABSOLUTE NEUT (AUTO) 11.5 10^3/uL (1.7-8.2); BASOPHILS % (AUTO) 0.2 % (0-2); EOSINOPHILS % (AUTO) 0.1 % (0-6); HEMATOCRIT 36.1 % (36.0-47.0); HEMOGLOBIN 12.6 g/dL (12.0-15.5); MEAN CORPUSCULAR HEMOGLOBIN 31.7 pg (27.0-33.4); MEAN CORPUSCULAR HGB CONC 34.8 g/dL (32.0-36.0); MEAN CORPUSCULAR VOLUME 91 fl (80-97); MONOCYTES % (AUTO) 6.2 % (3-13); PLATELET COUNT 277 10^3/uL (150-450); RED BLOOD COUNT 3.96 10^6/uL (3.72-5.28); RED CELL DISTRIBUTION WIDTH 13.6 % (11.5-14.0); SEGMENTED NEUTROPHILS % (AUTO) 82.5 % (42-78); TOTAL CELLS COUNTED % (AUTO) 100 %; WHITE BLOOD COUNT 13.9 10^3/uL (4.0-10.5)
--- NOTE | 2018-01-06 08:32 | Admission Physical ---
Datetime Report Generated by CPN: 01/06/2018 08:32 CURRENT ADMISSION Chief Complaint: Uterine Contractions Indication for Induction: Not Applicable Admit Impression : Term, Intrauterine Admit Plan: Admit to Unit; Initiate Section Protocol ALLERGIES Medication Allergies: No Medication Allergies: No Known Allergies (01/06/2018) Latex: No Latex Allergies Food Allergies: none Environmental Allergies: none OBSTETRICAL HISTORY EDC: 02/01/2018 00:00 : 2 Para: 1 Term: 1 : 0 SAB: 0 IAB: 0 Ectopic: 0 Livin Cesareans: 0 VBACs: 0 Multiple Births: 0 Gestational Diabetes: No Rh Sensitization: No Incompetent Cervix: No ZAHEER: No Infertility: No ART Treatment: No Uterine Anomaly: No IUGR: No Hx Previous C/S: No Macrosomia: No Hx Loss/Stillborn: No PIH: Yes Hx : No Placenta Previa/Abruption: No Depression/PP Depression: No PTL/PROM: No Post Hemorrhage: Yes Current Procedures: Ultrasound; NST Obstetrical History Comments: - 2016 Shoulder dystocia, induced HTN G2- c/s- GDM? SEE RECORDS Alcohol: No Marijuana : No Cocaine: No Other Illicit Drugs: No Cigarettes: Never Smoker. 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 Heart Disease: No Hosp/Surgery: Yes Autoimmune Disorder: No Anesthetic Complications: No Kidney Disease: No Abnormal Pap Smear: No Neuro/Epilepsy: No Psychiatric Disorders: No Other Medical Diseases: No Hepatitis/Liver Disease: No Significant Family History: No Varicosities/Phlebitis: No Trauma/Violence : No Thyroid Dysfunction: No Medical History Comments: childbirth, INFECTIOUS HISTORY Gonorrhea: No Genital Herpes: No Chlamydia: No Tuberculosis: No Syphilis: No Hepatitis: No HIV/AIDS Exposure: No Rash or Viral Illness: No HPV: No PHYSICAL EXAM General: Normal HEENT: Normal Neurologic: Normal Thyroid: Deferred Heart: Normal Lungs: Normal Breast: Deferred Back: Normal Abdomen: Normal Genitourinary Exam: Normal Extremities: Normal DTRs: Normal Pelvic Type: Adequate Vital Signs: Reviewed VAGINAL EXAM Dilatation: 7 Effacement: 100 Station: -2 Contraction Comments: q 3-4 FETUS A EGA: 36.2 Monitoring: External US FHR- Baseline: 120 Variability: Moderate 6-25bpm Accelerations: 15X15 Decelerations: None FHR Category: Category I Presentation: Vertex Admit Comment: 22yo at 36+2ega presents in active labor with cvx 6-7/c/-1. Bulgling bag. She is scheduled for Primary C/S due to h/o 1minute shoulder dystocia with erbs palsy. Reviewed with patient that this baby is smaller and would likely be ok for a vaginal delivery. She declines vaginal delivery despite reviewing prior delivery and this with her. She desires Primary C/S for history of shoulder dystocia. Consents signed. Labs done. Anesthesia notified. Pt reports that she is undecided regarding contraception. Bilateral renal dilation - NICU notified. PLANS FOR LABOR AND DELIVERY Labor and Delivery: None Pain Management: Spinal Other Pain Management Plans: scheduled c/s Feeding Preference: Breast Benefit of Breast Feed Discussed: Yes Circumcision: Yes INFORMED CONSENT Informed Consent Obtained: Vaginal Delivery; Section Delivery; Risks, Benefits and Alternatives Discussed Signature: with User ID: [email or web address]
[2018-01-06] MEDS ORDERED: FENTANYL CITRATE INJ/PF 100 MCG/2 ML AMPUL IV PRN ×3 (08:57)
[2018-01-06] MEDS ORDERED: MEPERIDINE HCL/PF INJ 25 MG/1 ML DISP.SYRIN IV PRN (08:57)
[2018-01-06] MEDS ORDERED: PROMETHAZINE HCL INJ 25 MG/1 ML VIAL IV PRN ×2 (08:57→09:51)
[2018-01-06] MEDS ORDERED: DIPHENHYDRAMINE HCL 50 MG/ML VIAL IV PRN (08:57)
[2018-01-06] MEDS ORDERED: MORPHINE SULFATE 10 MG/ML INJ IV PRN (08:57)
--- NOTE | 2018-01-06 09:19 | Warning Signs in Babies ---
VOD Warning Signs Datetime Report Generated by [facility]: 01/06/2018 09:19 VOD#608 -Warning Signs in Babies: Needs to be viewed. (01/06/2018 06:45:Jo Brooks RN)
[2018-01-06] MEDS ORDERED: HYDROMORPHONE HCL INJ/PF 2 MG/ML AMPULE IV PRN (09:51)
[2018-01-06] MEDS ORDERED: MEASLES,MUMPS&RUBELLA VACC/PF 0.5 ML VIAL SUBCUT PRN (09:51)
[2018-01-06] MEDS ORDERED: DIPH/PERTUSS(ACELL)/TETANUS VAC/PF 0.5 ML SYR (>=10YO) IM PRN (09:51)
[2018-01-06] MEDS ORDERED: SIMETHICONE 80 MG TAB.CHEW PO PRN (09:51)
[2018-01-06] MEDS ORDERED: OXYTOCIN/NORMAL SALINE 20 UNIT/1,000 ML RTUINJ IV PRN (09:51)
[2018-01-06] MEDS ORDERED: ACETAMINOPHEN 325 MG TABLET PO PRN (09:51)
[2018-01-06] MEDS ORDERED: OXYCODONE-ACETAMINOPHEN 5-325 MG TABLET PO PRN (09:51)
--- NOTE | 2018-01-06 09:51 | Brief Operative Note ---
BRIEF OPERATIVE REPORT DATE OF SURGERY: 01/06/18 TIME OF SURGERY: 09:00 PREOPERATIVE DIAGNOSIS: h/o shoulder dystocia, Declines vaginal delivery. Active labor at 36+2ega POSTOPERATIVE DIAGNOSIS: VANESSA - delivered, Right paratubal cyst SURGEON: ROVERTO GROVES FINDINGS: VMI delivered 858 on 01/06/2018, cephalic presentation. Weight 3860g , 8#8oz, Apgars 9/9. normal uterus, normal bilateral ovaries, normal bilateral tubes except right paratubal cyst noted and removed. IVF 1000ml, UOP 100ml, COMPLICATIONS: none ESTIMATED BLOOD LOSS: 904ml TISSUE REMOVED OR ALTERED: placenta and cord sent to pathology, right paratubal cyst TECHNICAL PROCEDURE: Primary Section, Right paratubal cyst excision
[2018-01-06] MEDS ORDERED: MAGNESIUM HYDROXIDE SUSP 30 ML UDCUP PO PRN (09:57)
[2018-01-06] MEDS ORDERED: DIPHENHYDRAMINE HCL 25 MG CAPSULE PO PRN (09:57)
[2018-01-06] MEDS ORDERED: ACETAMINOPHEN 650 MG SUPP.RECT PR PRN (09:57)
[2018-01-06] MEDS ORDERED: NA PHOS,M-B/NA PHOS,DI-BA (ADULT) 133 ML ENEMA PR PRN (09:57)
[2018-01-06] MEDS ORDERED: PROMETHAZINE HCL 25 MG SUPP.RECT PR PRN (09:57)
[2018-01-06] MEDS ORDERED: GLYCERIN/WITCH HAZEL LEAF 1 EACH MED..PAD TP PRN (09:57)
[2018-01-06] MEDS ORDERED: PROMETHAZINE HCL 25 MG TABLET PO PRN (09:57)
[2018-01-06] MEDS ORDERED: PSEUDOEPHEDRINE HCL 30 MG TABLET PO PRN (09:57)
[2018-01-06] MEDS ORDERED: ACETAMINOPHEN 1,000 MG/100 ML RTUPB IV PRN (10:30)
[2018-01-06] MEDS ORDERED: KETOROLAC TROMETHAMINE INJ/PF 30 MG/1 ML SDV ONE (10:33)
[2018-01-06] MEDS ORDERED: OXYTOCIN/NORMAL SALINE 20 UNIT/1,000 ML RTUINJ ONE (10:33)
[2018-01-06] MEDS ORDERED: ACETAMINOPHEN 1,000 MG/100 ML RTUPB IV ONE (10:33)
[2018-01-06] MEDS: KETOROLAC TROMETHAMINE INJ/PF 30 MG/1 ML SDV IV SCH ×2 (10:35→17:32)
--- NOTE | 2018-01-06 11:30 | Operative Report ---
Operative Report DATE OF SURGERY: 01/06/18 PREOPERATIVE DIAGNOSIS: h/o shoulder dystocia, Declines vaginal delivery. Active labor at 36+2ega POSTOPERATIVE DIAGNOSIS: VANESSA - delivered, Right paratubal cyst OPERATION: Primary Section, Right paratubal cyst excision SURGEON: ROVERTO GROVES ANESTHESIA: Spinal TISSUE REMOVED OR ALTERED: placenta and cord sent to pathology, right paratubal cyst COMPLICATIONS: none ESTIMATED BLOOD LOSS: 904ml INTRAOPERATIVE FINDINGS: VMI delivered 0859 on 01/06/2018, cephalic presentation. Weight 3860g, 8#8oz, Apgars 9/9. normal uterus, normal bilateral ovaries, normal bilateral tubes except right paratubal cyst noted and removed. IVF 1000ml, UOP 100ml, PROCEDURE: Anesthesia provider: [Celso Jerry MD] Urine output: [100ml] IV fluids: [1000ml] Indications: [22yo at 36+2ega presents in active labor at 6-7/100/-1. She has a history of a shoulder dystocia and baby had Erbs palsy and desires primary . She is undecided regarding her contraception. THe risks, benefits, alternatives were reviewed and she desires to proceed with planned procedure.] Procedure: The patient was taken to the operating room where spinal anesthesia was obtained and found to be adequate. She was then prepped and draped in the normal sterile fashion and placed in the dorsal supine position with a leftward tilt. A Pfannenstiel skin incision was then made and carried through to the underlying layers of the fascia with the scalpel. The fascia was incised in the midline and the incision extended laterally with the Cedillo scissors. The superior aspect of the fascial incision was then grasped with felicia clamps elevated and the underlying rectus muscles dissected off [bluntly]. Attention was then turned to the inferior aspect of the fascial incision which in a similar fashion was grasped, tented up with Felicia clamps, and the rectus muscles dissected off [bluntly]. The rectus muscles were then in the midline and the peritoneum at the amount identified and entered [bluntly]. The peritoneal incision was then extended superiorly and inferiorly with good visualization of the bladder. The bladder blade was inserted and the vesicouterine peritoneum identified grasped with Thai pickups and entered sharply with the Metzenbaum scissors. This incision was then extended laterally with the Metzenbaum scissors and a bladder flap created digitally. The bladder blade was then reinserted and the lower uterine segment incised in a transverse fashion with the scalpel. The uterine incision was then extended bluntly. The bladder blade was removed and the 's head was delivered from cephalic presentation atraumatically. The nose and mouth were suctioned and the cord doubly clamped and cut. And the infant was handed off to waiting pediatricians. The placenta was then delivered spontaneously and the uterus exteriorized and cleared of all clots and debris. The uterine incision was then repaired with 1- 0 Vicryl in a running locked fashion. A second layer of the same suture was used to obtain hemostasis via imbrication of the initial layer. The bladder flap was then repaired with 3-0 chromic in a running fashion. Right paratubal cyst removed with cautery. The uterus was returned to the patient's abdomen and Interceed was placed overlying the uterine incision to prevent adhesions. The gutters were cleared of all clots and debris. All operative sites were noted to be hemostatic. The fascia was reapproximated with 0 Vicryl in a running fashion from each lateral edge to the midline. The skin was closed with 3-0 Monocryl in a running subcuticular fashion with overlying Dermabond for additional dressing as well as wound closure. The patient tolerated the procedure well. Sponge lap needle and instrument counts are correct times 2. 2 g of Ancef were given prior to skin incision. The patient was taken to the recovery area awake and in stable condition.
[2018-01-06] MEDS ORDERED: MORPHINE SULFATE 10 MG/ML INJ ONE (11:37)
[2018-01-06] MEDS: PRENATAL VITAMIN W DHA CAPSULE PO SCH (12:20)
[2018-01-06] MEDS: DOCUSATE SODIUM 100 MG CAPSULE PO SCH ×2 (12:20→17:32)
[2018-01-06] MEDS ORDERED: PHENYLEPHRINE HCL INJ/PF 10 MG/1 ML SDV ONE (14:23)
[2018-01-06] MEDS: OXYCODONE-ACETAMINOPHEN 5-325 MG TABLET PO PRN (14:31)
[2018-01-06] MEDS ORDERED: CEFAZOLIN 2 GM/D5W RTU 2 GM/50 ML RTUPB IV SCH (15:00)
[2018-01-07] MEDS: OXYCODONE-ACETAMINOPHEN 5-325 MG TABLET PO PRN ×3 (00:12→20:10)
[2018-01-07] MEDS: KETOROLAC TROMETHAMINE INJ/PF 30 MG/1 ML SDV IV SCH (03:19)
[2018-01-07] MEDS ORDERED: IBUPROFEN 800 MG TABLET PO SCH (06:00)
[2018-01-07 06:38] LABS: HEMATOCRIT 28.6 % (36.0-47.0); MEAN CORPUSCULAR HEMOGLOBIN 31.6 pg (27.0-33.4); MEAN CORPUSCULAR HGB CONC 34.3 g/dL (32.0-36.0); MEAN CORPUSCULAR VOLUME 92 fl (80-97); PLATELET COUNT 206 10^3/uL (150-450); RED BLOOD COUNT 3.11 10^6/uL (3.72-5.28); RED CELL DISTRIBUTION WIDTH 13.3 % (11.5-14.0); WHITE BLOOD COUNT 14.8 10^3/uL (4.0-10.5)
[2018-01-07 06:46] LABS: HEMOGLOBIN 9.8 g/dL (12.0-15.5)
[2018-01-07] MEDS: PRENATAL VITAMIN W DHA CAPSULE PO SCH (09:33)
[2018-01-07] MEDS: DOCUSATE SODIUM 100 MG CAPSULE PO SCH ×2 (09:33→17:32)
[2018-01-07] MEDS: IBUPROFEN 800 MG TABLET PO SCH ×4 (09:33→23:25)
--- NOTE | 2018-01-07 17:30 | PDOC PROGRESS REPORT ---
Subjective-OB Progress Note for:: 01/07/18 Subjective: 22yo G2 now P2 s/p primary ppd1. Pt ambulating, voiding and without difficulty. Denies any concerns at this time. Physical Exam (OB) Vital Signs: Temp Pulse Resp BP Pulse Ox 98.3 F 83 16 107/55 L 98 01/07/18 15:24 01/07/18 15:24 01/07/18 15:24 01/07/18 15:24 01/07/18 15:24 Intake & Output 01/06/18 01/07/18 01/08/18 06:59 06:59 06:59 Intake Total 2030 960 Output Total 1550 Balance 480 960 Weight 86.2 kg - General General Appearance: Appears well In distress: None - PIH/Pre-Eclampsia Clonus: Negative Epigastric Pain: No Visual Changes: No - Dressing Removed: No Incision: Well Approximated Closure Type: Surgical Glue - Lochia Lochia Amount: Scant < 10 ml Lochia Color: Rubra/Red - Abdomen Description: Soft, Round Hernia Present: No Fundal Description: Firm, Midline Fundal Height: u/u - u/2 - Respiratory Respiratory Status: No respiratory distress - Extremities Upper extremity: Normal inspection Lower extremities: Normal inspection - Psychological Associated symptoms: Normal affect, Normal mood Objective-Diagnostic Laboratory: 01/07/18 05:55 01/07/18 05:55 WBC 14.8 H RBC 3.11 L Hgb 9.8 L D Hct 28.6 L MCV 92 MCH 31.6 MCHC 34.3 RDW 13.3 Plt Count 206 Assessment and Plan(PN) - Assessment and Plan (1) History of shoulder dystocia in prior Is this a current diagnosis for this admission?: Yes Plan: opted for elective primary ,delivered (2) Acute blood loss anemia Is this a current diagnosis for this admission?: Yes Plan: increase dietary iron and fes04 BID (3) Active labor Qualifiers: Fetus number: single or unspecified fetus Qualified Code(s): O60.10X0 - labor with delivery, unspecified trimester, not applicable or unspecified Is this a current diagnosis for this admission?: Yes Plan: delivered (4) S/P primary low transverse Is this a current diagnosis for this admission?: Yes Plan: routine pp care, increase dietary iron and fes04 BID. - Time Spent with Patient Time with patient: Less than 15 minutes - Disposition Anticipated Discharge: Home Within: within 24 hours
[2018-01-08] MEDS: OXYCODONE-ACETAMINOPHEN 5-325 MG TABLET PO PRN (03:04)
[2018-01-08] MEDS: IBUPROFEN 800 MG TABLET PO SCH ×2 (04:42→10:44)
--- NOTE | 2018-01-08 10:23 | PDOC DISCHARGE SUMMARY ---
Final Diagnosis Discharge Date: 01/08/18 - Final Diagnosis (1) History of shoulder dystocia in prior Is this a current diagnosis for this admission?: Yes (2) S/P primary low transverse Is this a current diagnosis for this admission?: Yes Discharge Data - Discharge Medication Home Medications: Ibuprofen [Motrin 800 mg Tablet] 800 mg PO Q8H tablet 01/08/18 Oxycodone HCl/Acetaminophen [Percocet 5-325 mg Tablet] 1 tab PO Q4HP PRN tablet 01/08/18 105/Iron/Folic AC/Dha [Prena1 True Combo Pack] 1 pkg PO DAILY #0 Procedures: NST Intrapartum Procedure(s): : Low Cervical, Transverse - Diagnosis Test Laboratory: Temp Pulse Resp BP Pulse Ox 98.7 F 74 16 124/66 98 01/08/18 07:32 01/08/18 07:32 01/08/18 07:32 01/08/18 07:32 01/08/18 07:32 01/06/18 01/06/18 01/07/18 06:20 08:15 05:55 RBC 3.96 3.11 L Hgb 12.6 9.8 L D Hct 36.1 28.6 L Urine Opiates Screen NEGATIVE - Discharge information/Instructions Discharge Activity: Balance Activity w/Rest, No Lifting/Push/Pulling, Pelvic Rest, No tub bath Discharge Diet: Regular Disposition: HOME, SELF-CARE Follow up with: [facility] in: 1, Weeks
[2018-01-08] MEDS: PRENATAL VITAMIN W DHA CAPSULE PO SCH (10:40)
[2018-01-08] MEDS: DOCUSATE SODIUM 100 MG CAPSULE PO SCH (10:44)
[2018-01-08 11:52] VITALS: BP 134/72
== END 2018-01-08 12:38 | disposition home or self-care (01) | DRG 784 ==
LOC: ER 06:03 → LR 08:03 → 2S 11:47
PROVIDERS: ADMIT Student in an Organized Health Care Education/Training Program; ATTEND Student in an Organized Health Care Education/Training Program
PROC: 10D00Z1 Extraction of Products of Conception, Low, Open Approach (ICD-10-PCS; principal; 2018-01-06)
PROC: 0UB50ZZ Excision of Right Fallopian Tube, Open Approach (ICD-10-PCS; 2018-01-06)
PROC: 4A1HXCZ Monitoring of Products of Conception, Cardiac Rate, External Approach (ICD-10-PCS; 2018-01-06)
DX: O60.14X0 Preterm labor third trimester with preterm delivery third trimester, not applicable or unspecified (principal); D62 Acute posthemorrhagic anemia; O34.83 Maternal care for other abnormalities of pelvic organs, third trimester; O99.02 Anemia complicating childbirth; N83.8 Other noninflammatory disorders of ovary, fallopian tube and broad ligament; Z87.59 Personal history of other complications of pregnancy, childbirth and the puerperium; Z3A.36 36 weeks gestation of pregnancy; Z37.0 Single live birth
CPT/HCPCS: 1961; 36415; 80307; 81005; 84112; 85025; 85027; 86850; 86900; 86901; 88305; 88307; 94760; 94799; J0131; J0690; J1885; J2250; J2270; J2370; J2540; J2590; J2704; J3010; J3490

== ENCOUNTER 2018-01-24 11:53 | Emergency (ER) | payer MEDICAID ==
[2018-01-24 12:03] VITALS: BP 118/76
--- NOTE | 2018-01-24 12:14 | ER Document Report ---
ED Medical Screen (RME) - General Chief Complaint: Incision Problem Stated Complaint: PAIN POST SURGERY Time Seen by Provider: 01/24/18 12:10 Notes: 22-year-old female patient had 01/06/2018. Had a checkup about a week ago and everything is fine. This morning she noticed some drainage she thought coming from the wound. There is a significant amount of pannus overhanging making it difficult for her to actually see the wound area. I have greeted and performed a rapid initial assessment of this patient. A comprehensive ED assessment and evaluation of the patient, analysis of test results and completion of the medical decision making process will be conducted by additional ED providers. TRAVEL OUTSIDE OF THE [place] IN LAST 30 DAYS: No - Related Data Allergies/Adverse Reactions: No Known Allergies Allergy (Verified 01/06/18 07:04) Past Medical History - Social History Chew tobacco use (# tins/day): No Frequency of alcohol use: None Drug Abuse: None Renal/ Medical History: Denies: Hx Peritoneal Dialysis Past Surgical History: Reports: Hx Section, Hx Orthopedic Surgery - R knee - Immunizations Immunizations up to date: Yes Hx Diphtheria, Pertussis, Tetanus Vaccination: Yes - 03/04/2007 Physical Exam - Vital signs Vitals: Temp Pulse Resp BP Pulse Ox 98.3 F 76 16 118/76 97 01/24/18 12:02 01/24/18 12:02 01/24/18 12:02 01/24/18 12:02 01/24/18 12:02 Course - Vital Signs Vital signs: Temp Pulse Resp BP Pulse Ox 98.3 F 76 16 118/76 97 01/24/18 12:02 01/24/18 12:02 01/24/18 12:02 01/24/18 12:02 01/24/18 12:02 Doctor's Discharge - Discharge Referrals: ROVERTO GROVES MD [Primary Care Provider] - Follow up as needed
--- NOTE | 2018-01-24 12:49 | ER Document Report ---
ED Wound - General Mode of Arrival: Ambulatory Information source: Patient TRAVEL OUTSIDE OF THE [place] IN LAST 30 DAYS: No - General Chief Complaint: Incision Problem Stated Complaint: PAIN POST SURGERY Time Seen by Provider: 01/24/18 12:10 Notes: 22-year-old female who presents to the emergency department today with complaints of a possible infection to her wound. Patient had a C- section performed on January 06. Patient states that she has been having the father of her child look at the wound daily and today he "noticed something green" around the incision site. Patient has no pain associated with this. Patient admits to decreased vaginal bleeding and denies any other vaginal discharge or fevers. (MINA GODINEZ) - Related Data Allergies/Adverse Reactions: No Known Allergies Allergy (Verified 01/06/18 07:04) Past Medical History - General Information source: Patient - Social History Smoking Status: Never Smoker Chew tobacco use (# tins/day): No Frequency of alcohol use: None Drug Abuse: None Lives with: Family Family History: Reviewed & Not Pertinent Patient has suicidal ideation: No Patient has homicidal ideation: No Renal/ Medical History: Denies: Hx Peritoneal Dialysis Past Surgical History: Reports: Hx Section, Hx Orthopedic Surgery - R knee - Immunizations Immunizations up to date: Yes Hx Diphtheria, Pertussis, Tetanus Vaccination: Yes - 03/04/2007 Review of Systems - Review of Systems Constitutional: No symptoms reported EENT: No symptoms reported Cardiovascular: No symptoms reported Respiratory: No symptoms reported Gastrointestinal: No symptoms reported Genitourinary: No symptoms reported Female Genitourinary: No symptoms reported Musculoskeletal: No symptoms reported Skin: See HPI, Other - possible wound infection Hematologic/Lymphatic: No symptoms reported Neurological/Psychological: No symptoms reported -: Yes All other systems reviewed and negative Physical Exam - Vital signs Vitals: Temp Pulse Resp BP Pulse Ox 98.3 F 76 16 118/76 97 01/24/18 12:02 01/24/18 12:02 01/24/18 12:02 01/24/18 12:02 01/24/18 12:02 - Notes Notes: PHYSICAL EXAM GENERAL: Alert, interacts well. No acute distress. HEAD: Normocephalic, atraumatic. EYES: Pupils equal, round, and reactive to light. Extraocular movements intact. ENT: Oral mucosa moist, tongue midline. NECK: Full range of motion. Supple. Trachea midline. LUNGS: No respiratory distress. ABDOMEN: Soft, non-tender. Non-distended. No evidence of bacterial infection around the incision, no drainage from incision, mild erythema with satellite lesions around the incision consistent with yeast infection. What patient originally thought was green discharge is actually skin glue peeling from the surgery. No evidence of abscess or purulence. EXTREMITIES: Moves all 4 extremities spontaneously. NEUROLOGICAL: Alert and oriented x3. Normal speech. PSYCH: Normal affect, normal mood. SKIN: Warm, dry, normal turgor. See abdomen exam. (MINA GODINEZ) Course - Re-evaluation Re-evalutation: 01/24/18 12:55 No evidence of bacterial infection around the incision, no drainage from the incision, mild erythema with satellite lesions around the incision consistent with a yeast infection, greenish discharge is actually the skin glue peeling up from after the surgery. No evidence of abscess or purulence. Patient is recommended to apply an antifungal cream once to twice a day and use gauze in the fold of her pannus to prevent further moisture from building up. 01/24/18 14:43 (SAAD FRIEDMAN) - Vital Signs Vital signs: Temp Pulse Resp BP Pulse Ox 98.3 F 76 16 118/76 97 01/24/18 12:02 01/24/18 12:02 01/24/18 12:02 01/24/18 12:02 01/24/18 12:02 Discharge - Discharge Clinical Impression: Yeast dermatitis, Complication of section wound Condition: Stable Disposition: HOME, SELF-CARE Additional Instructions: You have a very small amount of yeast infection on your skin around her C- section incision, please apply an antifungal cream to this area such as clotrimazole cream once to twice a day. This can be found [id number] in any drugstore. You may have to ask the pharmacist for help finding it. You do not need a prescription. There is no evidence of bacterial infection, you do not need antibiotics. You may keep a small amount of gauze in the fold of your skin to help prevent further irritation. The greenish discharge that you saw is actually the skin glue peeling off of the incision. This is an appropriate time for it to peel off. Please return to the emergency department for pain, increasing drainage or any new or concerning symptoms such as fever. Referrals: ROVERTO GROVES MD [ACTIVE STAFF] - Follow up as needed Scribe Attestation: 01/24/18 14:43 I personally performed the services described in the documentation, reviewed and edited the documentation which was dictated to the scribe in my presence, and it accurately records my words and actions. (SAAD FRIEDMAN) Scribe Documentation - Scribe Written by Laila:: Laila Marcum, 01/24/2018 1427 acting as scribe for :: Hellen
== END 2018-01-24 13:04 | disposition home or self-care (01) ==
LOC: ER 11:53
DX: B37.2 Candidiasis of skin and nail (principal); G89.18 Other acute postprocedural pain; Z98.890 Other specified postprocedural states; Y83.8 Other surgical procedures as the cause of abnormal reaction of the patient, or of later complication, without mention of misadventure at the time of the procedure; Y76.3 Surgical instruments, materials and obstetric and gynecological devices (including sutures) associated with adverse incidents
CPT/HCPCS: 99283